=== PATIENT | female | born 1940 | race African-American/Black ===

== ENCOUNTER 2018-10-06 10:04 | Emergency (ER) | payer MEDICARE ==
[~2018-10-06] VITALS: Ht 165.1 cm; Wt 83.0 kg
[2018-10-06] MEDS ORDERED: IBUPROFEN 600MG TABLET PO ONE (10:30)
[2018-10-06 11:48] VITALS: BP 130/80
== END 2018-10-06 11:58 | disposition home or self-care (01) ==
LOC: ER 10:07
DX: M17.12 Unilateral primary osteoarthritis, left knee (principal); M79.672 Pain in left foot; E11.9 Type 2 diabetes mellitus without complications; I10 Essential (primary) hypertension; Z90.49 Acquired absence of other specified parts of digestive tract; Z90.710 Acquired absence of both cervix and uterus; W01.0XXA Fall on same level from slipping, tripping and stumbling without subsequent striking against object, initial encounter; Y93.01 Activity, walking, marching and hiking; Y92.89 Other specified places as the place of occurrence of the external cause; Y99.8 Other external cause status
CPT/HCPCS: 73562; 73630; 99283